=== PATIENT | female | born 1985 | race Caucasian/White ===

== ENCOUNTER 2018-01-27 13:27 | Emergency (ER) | payer MEDICAID ==
--- NOTE | 2018-01-27 15:10 | ED Physician Documentation ---
PD HPI URI - Stated complaint Stated Complaint: SORE THROAT - Chief complaint Chief Complaint: Heent - History obtained from History obtained from: Patient - History of Present Illness Timing - onset: Today Timing duration: Days (1) Timing details: Abrupt onset, Still present Associated symptoms: Chills, Sore throat, Swollen nodes. No: Ear pain, Nasal congestion, Productive cough Contributing factors: No: Sick contact Similar symptoms before: Has not had sx before Recently seen: Not recently seen Review of Systems Constitutional: reports: Chills, Myalgias. denies: Fever Throat: reports: Sore throat. denies: Dental pain / toothache Cardiac: denies: Chest pain / pressure Respiratory: denies: Cough Skin: denies: Rash, Lesions Neurologic: denies: Focal weakness, Numbness, Near syncope PD PAST MEDICAL HISTORY - Past Medical History Cardiovascular: None Respiratory: None HEENT: None - Past Surgical History HEENT: Tonsil/Adenoidectomy - Present Medications Home Medications: Ambulatory Orders Medication Instructions Recorded Confirmed Cephalexin [Keflex] 500 mg PO Q6H #28 capsule 01/27/18 Dexamethasone [Decadron] 4 mg PO DAILY #5 tablet 01/27/18 Hydrocodone/Acetaminophen [Grant 1 each PO Q6H PRN #12 tablet 01/27/18 5-325 Tablet] - Allergies Allergies/Adverse Reactions: Allergies Allergy/AdvReac Type Severity Reaction Status Date / Time No Known Drug Allergies Allergy Verified 01/27/18 15:42 PD ED PE NORMAL - Vitals Vital signs reviewed: Yes - General General: Alert and oriented X 3, Well developed/nourished, Other (appears in pain with swallowing. ) - HEENT HEENT: Atraumatic, Ears normal, Moist mucous membranes. No: Pharynx benign (right throat without tonsils but does have redness and some exudate with local swelling but no deviation nor bulging of tissue. Left side is okay. ) - Neck Neck: Supple, no meningeal sign, Other (anterior adenopathy) - Cardiac Cardiac: RRR, No murmur - Respiratory Respiratory: Clear bilaterally - Abdomen Abdomen: Soft, Non tender Results - Vitals Vitals: Oxygen O2 Source Room air - Labs Labs: Microbiology 01/27/18 13:37 Group A Strep Throat Culture - Final Throat Beta Hemolytic Strep Group C Laboratory Tests 01/27/18 13:37 Group A Strep Rapid Negative PD MEDICAL DECISION MAKING - ED course Complexity details: considered differential (redness with some exudate and focal swelling peritonsillar area, without bulging nor deviation of tissue. ), d/w patient Departure - Departure Disposition: 01 Home, Self Care Clinical Impression: Peritonsillar cellulitis Condition: Stable Record reviewed to determine appropriate education?: Yes Instructions: ED Peritonsillar Infec Abx No I andD Prescriptions: Cephalexin [Keflex] 500 mg PO Q6H #28 capsule Dexamethasone [Decadron] 4 mg PO DAILY #5 tablet Hydrocodone/Acetaminophen [Grant 5-325 Tablet] 1 each PO Q6H PRN #12 tablet PRN Reason: Pain Comments: Drink lots of fluids. Use Tylenol or ibuprofen if needed for mild pains. Add hydrocodone if needed for worse pain. It does look like an infection developing around the right tonsil. We will treat this with cephalexin and Decadron which is an antibiotic and a steroid. Sometimes this will develop into an abscess and may get bigger. Recheck if not improving the next day or 2 and return if worsening as it may need drainage if it does develop that way. Discharge Date/Time: 01/27/18 15:59
[2018-01-27] MEDS ORDERED: HYDROcod/ACETAM 5/325 MG TABLET PO STA (15:31)
[2018-01-27] MEDS ORDERED: cephALEXin 250 MG CAPSULE PO STA (15:31)
[2018-01-27] MEDS ORDERED: DEXAMETHASONE 10 MG/ML VIAL PO STA (15:31)
[2018-01-27] MEDS ORDERED: CHERRY SYRUP 10 ML UDC PO ONE (15:49)
[2018-01-27 16:00] VITALS: BP 130/79
== END 2018-01-27 15:59 | disposition home or self-care (01) ==
LOC: ED 13:27
DX: J36 Peritonsillar abscess (principal)
CPT/HCPCS: 87070; 87430; 99283; A9270

== ENCOUNTER 2018-02-03 11:51 | Emergency (ER) | payer MEDICAID ==
[2018-02-03 12:32] LABS: BILIRUBIN,URINE NEGATIVE (NEGATIVE); GLUCOSE, URINE (UA) NEGATIVE (NEGATIVE); KETONES,URINE (UA) NEGATIVE (NEGATIVE); LEUKOCYTE ESTERASE, URINE NEGATIVE (NEGATIVE); NITRITE,URINE NEGATIVE (NEGATIVE); OCCULT BLOOD,URINE NEGATIVE (NEGATIVE); PROTEIN,URINE NEGATIVE (NEGATIVE); UROBILINOGEN,URINE 0.2 (NORMAL) E.U./dL (NORMAL)
[2018-02-03 12:34] LABS: CLARITY,URINE CLEAR (CLEAR); HCG UR QUAL NEGATIVE
--- NOTE | 2018-02-03 14:25 | ED Physician Documentation ---
PD HPI BACK PAIN - Stated complaint Stated Complaint: LOWER BACK PX - Chief complaint Chief Complaint: Back Pain - History obtained from History obtained from: Patient - History of Present Illness Timing - onset: Today Timing - details: Abrupt onset (onset just with getting up this morning. No noted abrupt injury.) Location: Lower, Right, Left Quality: Pain, Aching Associated symptoms: Other (has pain down both back thighs, but no weak nor numb.). No: Fever, Weakness, Numbness Worsened by: Movement (movement of the low back), Twisting Contributing factors: No: Lifting, Twisting, Trauma Similar symptoms before: No diagnosis (episodic low back pains in the past, not chronic perse, but recurrent.) Recently seen: Not recently seen Review of Systems Constitutional: denies: Fever, Chills, Myalgias Cardiac: denies: Chest pain / pressure, Palpitations Respiratory: denies: Dyspnea, Cough GI: denies: Abdominal Pain, Nausea, Vomiting Neurologic: denies: Focal weakness, Numbness, Near syncope PD PAST MEDICAL HISTORY - Past Medical History Cardiovascular: None Respiratory: None Neuro: None Endocrine/Autoimmune: None GI: None MACHINE WASHER: None : None HEENT: None Psych: None Musculoskeletal: None Derm: None - Past Surgical History Past Surgical History: Yes HEENT: Tonsil/Adenoidectomy - Present Medications Home Medications: Ambulatory Orders Medication Instructions Recorded Confirmed Methocarbamol [Robaxin] 500 mg PO Q6H PRN #30 tablet 02/03/18 Tramadol HCl 50 mg PO Q6H PRN #15 tablet 02/03/18 - Allergies Allergies/Adverse Reactions: Allergies Allergy/AdvReac Type Severity Reaction Status Date / Time No Known Drug Allergies Allergy Verified 02/03/18 12:12 - Social History Does the pt smoke?: Yes Smoking Status: Current every day smoker Does the pt drink ETOH?: Yes Does the pt have substance abuse?: No - Immunizations Immunizations are current?: No Immunizations: TDAP >10years/unknown - POLST Patient has POLST: No PD ED PE NORMAL - Vitals Vital signs reviewed: Yes - General General: Alert and oriented X 3, No acute distress, Well developed/nourished - Derm Derm: Normal color, Warm and dry, No rash - Extremities Extremities: Other (back is tender at muscles bilaterally. No vertebral tenderness to percussion. ) - Neuro Neuro: Alert and oriented X 3, No motor deficit, No sensory deficit, Other (normal reflexes at knees. ) Results - Vitals Vitals: Oxygen O2 Source Room air - Labs Labs: Laboratory Tests 02/03/18 12:22 Urine Color YELLOW Urine Clarity CLEAR Urine pH 6.0 Ur Specific Rufus 1.010 Urine Protein NEGATIVE Urine Glucose (UA) NEGATIVE Urine Ketones NEGATIVE Urine Occult Blood NEGATIVE Urine Nitrite NEGATIVE Urine Bilirubin NEGATIVE Urine Urobilinogen 0.2 (NORMAL) Ur Leukocyte Esterase NEGATIVE Ur Microscopic Review NOT INDICATED Urine Culture Comments NOT INDICATED Urine HCG, Qual NEGATIVE PD MEDICAL DECISION MAKING - ED course Complexity details: considered differential (low back pain without red flags. ), d/w patient Departure - Departure Disposition: Home, Self Care Clinical Impression: Acute low back pain Qualifiers: Back pain laterality: bilateral Sciatica presence: with sciatica Sciatica laterality: bilateral sciatica Qualified Code(s): M54.42 - Lumbago with sciatica, left side Condition: Stable Record reviewed to determine appropriate education?: Yes Instructions: ED Spasm Back No Trauma Follow-Up: Mita Reyna DNP [Primary Care Provider] - Prescriptions: Methocarbamol [Robaxin] 500 mg PO Q6H PRN #30 tablet PRN Reason: Spasms Tramadol HCl 50 mg PO Q6H PRN #15 tablet PRN Reason: Pain Comments: This sounds likely to have been some muscle strain and spasms causing her symptoms. Heat and gentle stretching for the low back. Continue some ibuprofen 3 times a day for the next several days. Add Robaxin muscle relaxant and Tylenol or tramadol as needed for pains. Recheck if persistent symptoms after several days to week. Discharge Date/Time: 02/03/18 15:28
[2018-02-03 14:30] VITALS: BP 129/79
== END 2018-02-03 15:28 | disposition home or self-care (01) ==
LOC: ED 11:51
DX: M54.42 Lumbago with sciatica, left side (principal); F17.200 Nicotine dependence, unspecified, uncomplicated
CPT/HCPCS: 81001; 81003; 81025; 87086; 99283

== ENCOUNTER 2019-12-20 21:49 | Emergency (ER) | payer MEDICAID ==
--- NOTE | 2019-12-20 22:23 | ED Physician Documentation ---
History of Present Illness - Stated complaint Stated Complaint: BAD SMELL IN NOSTRIL - Chief complaint Chief Complaint: General - History obtained from History obtained from: Patient - Additonal information Additional information: 34-year-old woman, previously healthy daily smoker, with multiple caries, presents with left nostril bad smell for the past 4 days. Patient states that she has a bad upper left tooth that is not currently bothering her. Has not been to dentist in years. Denies Discharge, pain, swelling, fevers, voice changes, difficulty with secretions, congestion or URI symptoms. Review of Systems Constitutional: denies: Fever, Chills Ears: denies: Ear pain Nose: reports: Other (sensation of bad smell from L nostril). denies: Rhinorrhea / runny nose Throat: denies: Dental pain / toothache, Sore throat, Swollen tonsils Respiratory: denies: Cough PD PAST MEDICAL HISTORY - Past Medical History Cardiovascular: None Respiratory: None Neuro: None Endocrine/Autoimmune: None GI: None FIELD ARTILLERY OFFICER: None : None HEENT: None Psych: None Musculoskeletal: None Derm: None - Past Surgical History Past Surgical History: Yes HEENT: Tonsil/Adenoidectomy - Present Medications Home Medications: Ambulatory Orders Medication Instructions Recorded Confirmed No Known Home Medications 12/20/19 12/20/19 - Allergies Allergies/Adverse Reactions: Allergies Allergy/AdvReac Type Severity Reaction Status Date / Time No Known Drug Allergies Allergy Verified 12/20/19 22:02 - Social History Does the pt smoke?: Yes Smoking Status: Current every day smoker Does the pt drink ETOH?: Yes Does the pt have substance abuse?: No - Immunizations Immunizations are current?: No Immunizations: TDAP >10years/unknown - POLST Patient has POLST: No PD ED PE NORMAL - Vitals Vital signs reviewed: Yes - General General: Alert and oriented X 3 - HEENT HEENT: Atraumatic, PERRL, EOMI, Ears normal, Moist mucous membranes, Pharynx benign, Other (BL TMs clear. BL nares unremarkable. nontender on palpation of sinuses. poor dentition. L soft palate 2mm nontender black lesion) - Neck Neck: Supple, no meningeal sign - Derm Derm: Normal color, Warm and dry - Neuro Neuro: Alert and oriented X 3 Results - Vitals Vitals: Vital Signs - 24 hr 12/20/19 21:59 Temperature 36.7 C Heart Rate 97 Respiratory 18 Rate Blood Pressure 128/96 H O2 Saturation 99 Oxygen O2 Source Room air PD MEDICAL DECISION MAKING - ED course ED course: 34-year-old woman presented for sensation of malodor from left nare for the past 4 days. Found to have poor dentition with lesion to left soft palate without fluctuance or tenderness on exam. Vital signs within normal limits and patient without any other complaints at this time. Plan to follow-up outpatient ear nose and throat as well as with a dentist. Return preCautions given. Departure - Departure Clinical Impression: Dental caries Condition: Good Record reviewed to determine appropriate education?: Yes Instructions: ED Cavity Dental Comments: Please follow-up with a dentist and an ear nose and throat doctor in regards to your symptoms. It is likely that the Odor that you are experiencing is related to your dental health. Return to the emergency room for any worsening of symptoms including fevers, shortness of breath, excessive drool or other worsening of symptoms. [facility] Facebook ([phone]) General Dentistry [address], [place] [facility] [phone] [place] [facility] [address] [facility] [id number], [place]
[2019-12-20 22:41] VITALS: BP 124/96
== END 2019-12-20 22:41 | disposition home or self-care (01) ==
LOC: ED 21:49
DX: K02.9 Dental caries, unspecified (principal); K13.29 Other disturbances of oral epithelium, including tongue; F17.200 Nicotine dependence, unspecified, uncomplicated
CPT/HCPCS: 99282; 99283